=== PATIENT | male | born 1965 | race Caucasian/White ===

== ENCOUNTER 2024-06-21 11:01 | Outpatient (CLI) | payer BC, SELFPAY | END 2024-06-21 11:02 | disposition home or self-care (01) | PROVIDERS: PCP Family Medicine; Visit Provider Family Medicine | DX: E78.5 Hyperlipidemia, unspecified (principal); Z12.5 Encounter for screening for malignant neoplasm of prostate; Z13.1 Encounter for screening for diabetes mellitus; Z13.0 Encounter for screening for diseases of the blood and blood-forming organs and certain disorders involving the immune mechanism | CPT/HCPCS: 80048; 80061; G0103 ==

== ENCOUNTER 2024-07-09 07:24 | Day surgery (SDC) | payer BC, SELFPAY ==
[2024-07-09] VITALS (11 sets, daily range): BP systolic 106–147; BP diastolic 62–93; PULSE 73–84; RESP 16–20; TEMP 36.6–37; O2SAT 94–97; BMI 25.3
[2024-07-09] MEDS: LACTATED RINGERS 1000 ML 1,000 ML 100 ML IV (07:40)
[2024-07-09] MEDS: SODIUM CHLORIDE 0.9 % (FLUSH) 10 ML SYRINGE IVF (08:02)
--- NOTE | 2024-07-09 08:26 | W.PM.H&PU ---
History & Physical Update History & Physical Update H&P Reviewed and patient assessed: No changes noted
--- NOTE | 2024-07-09 08:27 | PM.GSPRC ---
Operative Note Date of procedure: 07/09/24 Pre-op diagnosis: 1. Symptomatic right inguinal hernia. Post-op diagnosis: 1. Right direct inguinal hernia containing incarcerated preperitoneal fat. Type of Procedure: 1. Laparoscopic right inguinal hernia repair with mesh. Indications: 58-year-old male was seen in clinic for evaluation of a right inguinal hernia. Patient states that he noticed a right inguinal bulge years ago. It has increased in size. 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 However, when he is sitting at home, he notices aching pain in the right groin. The pain usually resolves spontaneously. He denies any episodes of incarceration. On clinical exam the patient standing up and doing Valsalva there is a small right inguinal hernia noticed. There is no evidence of inguinal hernia on the left. Given patient's clinical history and his symptoms, laparoscopic right inguinal hernia repair was recommended. The procedure was discussed in detail. The risks associated procedure including infection, bleeding, injury to preperitoneal organs, and hernia recurrence were all discussed with the patient, and he agreed to proceed. Procedure Description: After discussing the risks and benefits of the procedure, the patient signed informed consent.? The operative site was marked and the patient was brought to the operating room and placed on the operating table in supine position.? Care was taken to pad the patient's pressure points.?? The patient was then intubated by anesthesia.?? The operative site was then prepped and draped in the usual sterile fashion.? A time-out was then performed. An infraumbilical skin incision was made with a scalpel and subcutaneous tissues were dissected with electrocautery. Anterior sheath was incised with electrocautery and rectus muscle was retracted laterally. Posterior sheath was incised during making this incision and this opening in the posterior sheath was closed with Vicryl suture. A 12 mm spacemaker dissector system was introduced into the incision and advanced over the posterior sheath. Preperitoneal space was dissected with manually insufflating air under direct visualization. Once the tissues were dissected, the balloon was deflated and removed.? A laparoscopic balloon was placed into preperitoneal space and balloon was inflated. Preperitoneal space was insufflated with air. No bleeding was identified upon examination of preperitoneal space. We then placed two 5 mm ports suprapubically under direct visualization. ? The preperitoneal tissues were bluntly dissected with graspers.? The pubic bone was identified and? cleared from preperitoneal tissue.? The right direct hernia was immediately seen. Preperitoneal fat was incarcerated in this hernia space. This was reduced bluntly with graspers.? Inferior epigastrics on right?side were retracted towards the abdominal wall.?? Spermatic cord? was identified and dissected circumferentially.? This was done bluntly. Peritoneum on the right side was identified and was retracted cephalad. There was no evidence of indirect inguinal hernia on the right. When adequate space was developed for mesh placement, a right sided Parietex? mesh was used and positioned around the spermatic cord. The mesh was tacked medially and laterally with?tacks.? Additional local anesthetic was injected directly into pre-peritoneal space. ? The space was deflated under direct visualization and mesh appeared to be still lying in a good position. The ports were then removed. Anterior sheath was then closed with a running 0-0 vicryl suture. Skin was closed with 4-0 monocryl using subcuticular stitch. Steri strips were applied over the laparoscopic?incisions. ? All counts were correct at the end of the case. Patient tolerated the procedure well and was transferred to PACU without any complications. Findings: Direct inguinal hernia containing preperitoneal fat. Repaired with mesh. Implants: Parietex mesh. Anesthesia: GETA Surgeon: Syeda Rubio MD Estimated blood loss (mL): 5 Condition: stable Disposition: PACU
[2024-07-09] MEDS: CEFAZOLIN 1 GM inj IVP (08:45)
[2024-07-09] MEDS: BUPIVACAINE 0.25% 30 ML INJECTION (09:40)
[2024-07-09] MEDS: LIDOCAINE 1%-EPI 1:100,000 20 ML INFILTRATI (09:40)
--- NOTE | 2024-07-09 10:00 | P.ANES_ITS ---
Anesthesia Charges Start Date/Time Anesthesia Start Date: 07/09/24 Anesthesia Start Time: 08:38 Stop Date/Time Anesthesia Stop Date: 07/09/24 Anesthesia Stop Time: 09:57 Coding CPT Codes CPT Codes: ANESTH REPAIR OF HERNIA - 80135 ([id number]) P1 - NORMAL HEALTHY PATIENT, QK - HEALTH SCREENER 2-4 CNCRNT ANES PROC, QX - TABLE FILLER SVMj W/ MED DIRECTION
--- NOTE | 2024-07-09 10:00 | W.ANESCHARGE ---
Anesthesia Charges Start Date/Time Anesthesia Start Date: 07/09/24 Anesthesia Start Time: 08:38 Stop Date/Time Anesthesia Stop Date: 07/09/24 Anesthesia Stop Time: 09:57 Coding CPT Codes CPT Codes: ANESTH REPAIR OF HERNIA - 49624 ([id number]) P1 - NORMAL HEALTHY PATIENT, QK - SHIP LOADER 2-4 CNCRNT ANES PROC, QX - AIR POLLUTION COMPLIANCE INSPECTOR SVMj W/ MED DIRECTION
--- NOTE | 2024-07-09 10:11 | P.ANES_ITS ---
Anesthesia Charges Start Date/Time Anesthesia Start Date: 07/09/24 Anesthesia Start Time: 08:38 Stop Date/Time Anesthesia Stop Date: 07/09/24 Anesthesia Stop Time: 09:57 Coding CPT Codes CPT Codes: ANESTH SURG LOWER ABDOMEN - 37040 ([id number]) QK - SOCCER REFEREE 2-4 CNCRNT ANES PROC, QX - PAIRER SVC W/ MD MED DIRECTION, P1 - NORMAL HEALTHY PATIENT
--- NOTE | 2024-07-09 10:11 | W.ANESCHARGE ---
Anesthesia Charges Start Date/Time Anesthesia Start Date: 07/09/24 Anesthesia Start Time: 08:38 Stop Date/Time Anesthesia Stop Date: 07/09/24 Anesthesia Stop Time: 09:57 Coding CPT Codes CPT Codes: ANESTH SURG LOWER ABDOMEN - 05652 ([id number]) QK - SOUND TESTER 2-4 CNCRNT ANES PROC, QX - CHIEF STEWARD/STEWARDESS SVC W/ MD MED DIRECTION, P1 - NORMAL HEALTHY PATIENT
== END 2024-07-09 11:20 | disposition home or self-care (01) ==
PROVIDERS: PCP Family Medicine; Visit Provider Surgery
PROC: (CPT 49650; principal; 2024-07-09 08:45)
DX: K40.30 Unilateral inguinal hernia, with obstruction, without gangrene, not specified as recurrent (principal)
CPT/HCPCS: 49650; 00830; 00840; C1781; J0665; J0690; J1100; J1885; J2250; J2405; J2704; J3010; J3490; J7120

== ENCOUNTER 2024-08-05 08:56 | Outpatient (CLI) | payer BC, SELFPAY | END 2024-08-05 08:57 | disposition home or self-care (01) | LOC: NFLDREF 19:30 | PROVIDERS: PCP Family Medicine; Referring Provider Family Medicine; Visit Provider Family Medicine | DX: R97.20 Elevated prostate specific antigen [PSA] (principal); Z12.5 Encounter for screening for malignant neoplasm of prostate | CPT/HCPCS: 84153 ==

== ENCOUNTER 2024-11-05 10:19 | Outpatient (CLI) | payer BC, SELFPAY | END 2024-11-05 10:20 | disposition home or self-care (01) | LOC: NFLDREF 11-06 10:09 | PROVIDERS: PCP Family Medicine; Referring Provider Family Medicine; Visit Provider Family Medicine | DX: R97.20 Elevated prostate specific antigen [PSA] (principal); Z12.5 Encounter for screening for malignant neoplasm of prostate | CPT/HCPCS: 84153 ==